=== PATIENT | female | born 1990 ===

== ENCOUNTER 2017-01-20 12:49 | Emergency (ER) | payer BC ==
[2017-01-20 12:57] VITALS: BP 104/54; PULSE 73; RESP 16; TEMP 99.1; O2SAT 97
--- NOTE | 2017-01-20 14:01 | ED PDOC ---
Arrival/HPI - General Chief Complaint: ENT Problem Time Seen by Provider: 01/20/17 13:58 Historian: Patient - History of Present Illness Narrative History of Present Illness (Text): 01/20/17 14:03 26yr old female presents today with a 5 day history of left ear pain. pt states she was seen by PMd 5 days ago and was started on abx for left ear infection. pt states she completed medication today without improvement in symptoms. pt denies dizziness or weakness. no cp or sob. pt c/o dry cough x 3 days. no vomiting. denies headache. pt states she has been taking motrin for pain. no other complaints. Symptom Onset: Gradual Symptom Course: Unchanged Quality: Throbbing Severity Level: 5 Past Medical History - Provider Review Nursing Documentation Reviewed: Yes - Travel History Have you recently traveled outside [place] w/in the past 3 mons?: No - Infectious Disease Hx of Infectious Diseases: None - Tetanus Immunization Tetanus Immunization: Unknown - Cardiac Hx Cardiac Disorders: No - Pulmonary Hx Respiratory Disorders: No - Neurological Hx Neurological Disorder: No - HEENT Other/Comment: RECENT URI - Renal Hx Renal Disorder: No - Endocrine/Metabolic Hx Endocrine Disorders: No - Hematological/Oncological Hx Blood Disorders: No - Integumentary Hx Dermatological Disorder: No - Musculoskeletal/Rheumatological Hx Musculoskeletal Disorders: No - Gastrointestinal Hx Gastrointestinal Disorders: No - Genitourinary/Gynecological Hx Genitourinary Disorders: No - Psychiatric Hx Psychophysiologic Disorder: No Hx Substance Use: No - Surgical History Other/Comment: NASAL Family/Social History - Physician Review Nursing Documentation Reviewed: Yes Family/Social History: Unknown Family HX Smoking Status: Never Smoked Hx Alcohol Use: Yes Frequency of alcohol use: Socially Hx Substance Use: No Allergies/Home Meds Allergies/Adverse Reactions: Allergies No Known Allergies Allergy (Verified 01/20/17 12:53) Review of Systems - Review of Systems Constitutional: absent: Fatigue, Fevers Eyes: absent: Vision Changes, Photophobia ENT: Sore Throat, Sinus Congestion, Other (left ear pain) Respiratory: Cough. absent: SOB, Wheezing Cardiovascular: absent: Chest Pain, Palpitations Gastrointestinal: absent: Abdominal Pain, Nausea, Vomiting Skin: Rash Neurological: absent: Headache, Dizziness Psychiatric: absent: Anxiety, Depression Physical Exam Vital Signs Reviewed: Yes Vital Signs Temp Pulse Resp BP Pulse Ox 01/20/17 12:53 99.1 F 73 16 104/54 L 97 Temperature: Afebrile Blood Pressure: Normal Pulse: Regular Respiratory Rate: Normal Appearance: Positive for: Well-Appearing, Non-Toxic, Comfortable Pain Distress: None Mental Status: Positive for: Alert and Oriented X 3 - Systems Exam Head: Present: Atraumatic Extroacular Muscles: Present: EOMI Conjunctiva: Present: Normal Ears: Present: Erythema (left tm with minimal erythema), Normal Canal, Other ( no mastoid tenderness or erythema.). No: TM Perf Mouth: Present: Moist Mucous Membranes, Normal Tounge. No: Drooling, Trismus Pharnyx: Present: Normal. No: ERYTHEMA, EXUDATE, TONSILS ENLARGED, Peritonsilar Swelling, Uvular Deviation, Muffled/Hoarse Voice Nose (Internal): Present: Normal Inspection Neck: Present: Normal Range of Motion, Trachea Midline. No: Lymphadenopathy Respiratory/Chest: Present: Clear to Auscultation, Good Air Exchange. No: Respiratory Distress, Accessory Muscle Use Cardiovascular: Present: Regular Rate and Rhythm, Normal S1, S2. No: Murmurs Neurological: Present: GCS=15, Speech Normal Skin: Present: Warm, Dry, Normal Color. No: Rashes Psychiatric: Present: Alert, Oriented x 3 Medical Decision Making ED Course and Treatment: 01/20/17 14:34 Patient is nontoxic well appearing in no distress. Vital signs are stable toradol IM pt with slight left ear erythema; will d/c home with rx for augmentin; flonase, motrin, claritin. advised f/u with ENT. I advised follow up with primary care physician within the next 2 days, advised to increase fluids take medications as prescribed and return if symptoms worsen persist or if new symptoms develop IMPRESSION; otitis media, sore throat, cough Motrin every 6 hours as needed for pain Flonase 2 sprays each nostril once daily Albuterol 2 puffs every 4-6 hours as needed for cough. claritin once daily Augmentin twice daily x 10 days follow up with the ENT specialist within the next 2 days. return if symptoms worsen, persist or if new symptoms develop. - Medication Orders Current Medication Orders: Discontinued Medications Ketorolac Tromethamine (Toradol) 60 mg IM STAT STA Stop: 01/20/17 14:14 Last Admin: 01/20/17 14:26 Dose: 60 mg Disposition/Present on Arrival - Present on Arrival Any Indicators Present on Arrival: No History of DVT/PE: No History of Uncontrolled Diabetes: No Urinary Catheter: No History of Decub. Ulcer: No History Surgical Site Infection Following: None - Disposition Have Diagnosis and Disposition been Completed?: Yes Diagnosis: Cough, Sore throat, Otitis media Disposition: HOME/ ROUTINE Disposition Time: 13:59 Patient Plan: Discharge Patient Problems: Current Active Problems Problem Status Onset Cough Acute Otitis media Acute Sore throat Acute Condition: GOOD Discharge Instructions (ExitCare): Otitis Media (ED), Acute Cough (ED) Additional Instructions: Motrin every 6 hours as needed for pain Flonase 2 sprays each nostril once daily Albuterol 2 puffs every 4-6 hours as needed for cough. claritin once daily Augmentin twice daily x 10 days follow up with the ENT specialist within the next 2 days. return if symptoms worsen, persist or if new symptoms develop. Prescriptions: Albuterol HFA [Ventolin HFA 90 mcg/actuation (8 g)] 2 puff IH [id number] PRN #1 inhaler PRN Reason: Cough Amoxicillin/Clavulanate [Augmentin 875 MG-125 MG] 1 tab PO BID #20 tab Fluticasone Nasal [Flonase] 2 spr NS DAILY #1 spr Ibuprofen [Motrin] 600 mg PO Q6H PRN #20 tab PRN Reason: pain/fever reduction Loratadine [Claritin] 10 mg PO DAILY #30 tab Referrals: Katarina Jorgensen MD [Primary Care Provider] - Follow up with primary Enrico Nunez DO [Staff Provider] - Follow up with primary
== END 2017-01-20 14:38 | disposition home or self-care (01) ==
LOC: ED 12:49
DX: H66.90 Otitis media, unspecified, unspecified ear (principal); J02.9 Acute pharyngitis, unspecified; R05 Cough
CPT/HCPCS: 96372; 99283; J1885